=== PATIENT | male | born 1960 | race Caucasian/White ===

== ENCOUNTER 2017-01-22 15:07 | Inpatient (IN) | payer MEDICARE, OTHER ==
--- NOTE | ~2017-01-22 | DS ---
Discharge Summary [address] [address] NAME: ASHLEIGHJEREMY ANTHONY : 64 STATUS : DIS IN PAT#: [id number] AGE: 56 ADM/REG DATE : 01/22/17 MR#: [id number] REPORT SERV DATE: 01/29/17 DICTATED BY: CHAVA DON DATE: 01/28/17 REPORT STATUS : Draft TRANSCRIBED BY: MODL DATE: 01/28/17 ADMISSION DATE: 01/22/2017 DISCHARGE DATE: 01/28/2017 DISCHARGE DIAGNOSES: 1. Acute on chronic hypoxemic and hypercapnic respiratory failure. 2. Right lower lobe and right middle lobe pneumonia, positive sputum culture for Serratia liquefaciens. 3. Right lower lobe bronchiectasis. 4. Left lower lobe atelectasis. 5. Coronary artery disease with coronary calcification by CT imaging. 6. Chronic anemia. 7. Morbid obesity. 8. Sleep apnea. 9. Obesity hypoventilation syndrome. 10.Chronic left hip osteomyelitis on chronic suppressive therapy with cefadroxil. 11.Hypothyroid on replacement. 12.Edema. 13.Down's syndrome. OPERATIONS AND PROCEDURES: None. PRESENT ILLNESS: This is a 56-year-old white male who was triaged in the emergency room on 01/22/2017 at 1313 hours with complaints of shortness of breath and cough. Admission vital signs: Blood pressure 103/72, temp 98.2, pulse 90, respirations 20, O2 sat 98%. After evaluation in the emergency room, his diagnosis was pneumonia. He was referred to the Hospitalist Service. He was seen by Dr. Chava Arana and admitted as described on admission history and physical examination. Additional history included a history of bronchiectasis, followed by Dr. Jersey Kulkarni at [facility]. He has known sleep apnea and is on CPAP. He had been treated in the outpatient setting for an upper respiratory/lower respiratory infection without improvement. ADDITIONAL HISTORY: Per Dr. Arana. PHYSICAL EXAMINATION: Per Dr. Arana. ADMISSION LABORATORY: Per Dr. Arana. HOSPITAL COURSE: He was admitted by Dr. Arana with right lower lobe pneumonia in the setting of the above-mentioned comorbidities. Discharge Summary [address] [address] NAME: JEREMY SOTELO DOB: [birth year] STATUS : DIS IN PAT#: [id number] AGE: 56 ADM/REG DATE : 01/22/17 MR#: [id number] REPORT SERV DATE: 01/29/17 DICTATED BY: CHAVA DON DATE: 01/28/17 REPORT STATUS : Draft TRANSCRIBED BY: MODL DATE: 01/28/17 On admission, cultures were obtained. He was started on antimicrobial therapy with Rocephin and Zithromax. He was given O2, aerosols and corticosteroids. He was also started on Diamox. Dr. Arana obtained consultation with Pulmonary. He was seen by Dr. Yarbrough who concurred with the above-mentioned therapy except he recommended discontinuing Diamox. His hospitalist care was by Dr. Serra on the and the undersigned on the through discharge. His admission antimicrobial therapy was continued until a sputum culture returned growing Serratia as described. He was transitioned to Levaquin. Blood cultures obtained on admission were no growth and not surprisingly, influenza testing and urinary antigen testing for strep and Legionella were negative. There was a slow, but steady improvement in his respiratory symptoms during his hospitalization such that by the time of discharge, his cough and sputum had significantly diminished. His blood gas abnormalities had also markedly improved. On admission, on 01/22/2017 at 1759 hours; pH was 732, pCO2 85, pO2 67 on FiO2 of 0.32. On the day of discharge; pH 739, pCO2 56, pO2 61 on FiO2 of 0.28. Additional evaluation was done to further evaluate his respiratory failure and degree of pneumonia. An echocardiogram showed normal left ventricular systolic function. Study was poor. Venous ultrasound imaging was done because of edema, body size, and presentation and no DVT was seen. A modified barium swallow was done and no oropharyngeal dysphagia was identified. A CT chest without contrast was done but was limited by respiratory motion. There was patchy consolidation in the right lower lobe and lateral aspect of the right middle lobe thought to represent pneumonia. A followup CT in 6 to 12 weeks was recommended. In addition to the above, there was some cylindrical bronchiectasis in the right lower lobe. He was seen by Physical Therapy. half-way facility PT was recommended. The family choice for [facility] where his sister works. A bed is available today. Today, it is felt that he has achieved a level of improvement and stability where he can be safely transferred to rehab. DISCHARGE MEDICATIONS: Vitamin C 500 mg twice daily, Duricef 1000 mg twice daily (chronic med), Lovenox 40 mg subcutaneous daily, ranitidine 300 mg twice daily, Lasix 40 mg daily, guaifenesin LA 1200 mg twice daily, Synthroid 125 mcg daily, Claritin 10 mg daily, dressing changes chronic wound three times weekly, Florastor one capsule twice daily, Levaquin 750 mg Discharge Summary [address] [address] NAME: JEREMY SOTELO : 64 STATUS : DIS IN PAT#: [id number] AGE: 56 ADM/REG DATE : 01/22/17 MR#: [id number] REPORT SERV DATE: 01/29/17 DICTATED BY: CHAVA DON DATE: 01/28/17 REPORT STATUS : Draft TRANSCRIBED BY: DAMIAN DATE: 01/28/17 daily for the next 8 days, Brovana nebs q.12 hours, Pulmicort nebs 1 mg q.12 hours, DuoNeb every 4 hours scheduled and q.2 hours p.r.n., Tylenol 500 mg as needed, [place] 10/325 daily as needed. Continue home CPAP, O2, 2 L/min by nasal cannula given the above mentioned arterial blood gases. He is to have a low-sodium diet. At discharge, he will need followup with Dr. Christian and Dr. Kulkarni. Discharge time greater than 30 minutes. DICTATED BY: Chava Don M.D. DD/DAMIAN Chava Don M.D. / [id number] CC: Delia Galaviz M.D. Suresh Enjeti, M.D. [facility]
--- NOTE | ~2017-01-22 | HP ---
History And Physical [address] [address] NAME: JEREMY SOTELO : 64 STATUS : ADM IN [facility]#: [id number] AGE: 56 ADM/REG DATE : 01/22/17 MR#: [id number] REPORT SERV DATE: 01/22/17 DICTATED BY: CHAVA STONE DATE: 01/22/17 REPORT STATUS : Draft TRANSCRIBED BY: MODL DATE: 01/22/17 DATE OF ADMISSION: 01/22/2017 ATTENDING PHYSICIAN: Dr. Avendaño. REASON FOR ADMISSION: Pneumonia bilateral lower lobes and chronic respiratory failure. HISTORY OF PRESENT ILLNESS: This is a 56-year-old white male patient with Down syndrome, who has had chronic recurrent respiratory infections in the past. He had right lower lobectomy in the past assuming to have been for bronchiectasis. He is followed by Dr. Jersey Kulkarni at [place]. His primary care physician is Dr. Semaj Christian in [place]. He has had increasing coughing and shortness of breath. He is wearing a CPAP machine at night because of obstructive sleep apnea. He is known to have severity of respiratory distress, he develops pneumonia. He was brought in because of coughing and fever and chills. He has poor dentition, he has lost some of his caps on his upper teeth and has got to go to see the dentist. He has a broken tooth on the right upper molar that is visible now. He has chronic osteomyelitis or chronic right hip joint infection. 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 He has been seen in the past by Dr. Mustapha Woody and Dr. Miguel A Marshall from Orthopedic surgery. He has chronic osteomyelitis. Home health nurse continues to see him. He has about an 8 inch drain on the anterior inguinal fold on the left side. PAST MEDICAL HISTORY: During prior hospitalization, he had right sacroiliitis. He had open wound in his left hip. He was transferred to [facility] after our initial treatment and stabilization here. This was about one year ago. Dr. Owens had seen him in the intensive care unit and resuscitated him from septic shock at that time. His home medications have not yet been identified by pharmacy but will be reviewed. He has morbid obesity, had lost 91 pounds on Weight Watchers. He has gained a lot of weight since he has had his hip joint replacement and the Girdlestone procedure in the past. He does have hypothyroidism and recurrent infections along with the sleep apnea. He had a right thoracotomy with right lower lobe lobectomy and multiple procedures on his left hip. MEDICATIONS: Previous medications had included Synthroid 125 mcg p.o. daily; Dulera 2+ puffs twice a day; Spiriva; Zantac; Caltrate; vitamin C; and Zyrtec. SOCIAL HISTORY: He lives with his mother now in a house owned by his sister who is a nurse at [employer]. He does not smoke cigarettes or take any alcohol. He was a bowling [place] prior to him falling and breaking his hip. He does not smoke any cigarettes. He does not take any alcohol or illicit drug use. History And Physical [address] [address] NAME: JEREMY SOTELO : 64 STATUS : ADM IN [facility]#: [id number] AGE: 56 ADM/REG DATE : 01/22/17 MR#: [id number] REPORT SERV DATE: 01/22/17 DICTATED BY: CHAVA STONE DATE: 01/22/17 REPORT STATUS : Draft TRANSCRIBED BY: DAMIAN DATE: 01/22/17 FAMILY HISTORY: His father had COPD and lung cancer and mother had hypertension. REVIEW OF SYSTEMS: Difficult to obtain from the patient as he does have mental disability from his Down syndrome, but he denies any chest pain, does not feel short of breath. He has not had any fever, chills, or night sweats. The swelling in his lower extremities is the same as usual and he is hungry and wants to eat some food. The remainder of the review of systems are negative. PHYSICAL EXAMINATION: GENERAL: Morbidly obese white male with features of Down syndrome, in no acute distress. VITAL SIGNS: Blood pressure 103/72 with a heart rate of 90, respiratory rate 20, and oxygen saturation 98% initially. HEENT: EOMI. Sclerae clear. Conjunctivae injected with some mattering. NECK: No bruit without any JVD. His pharynx is clear. Tongue is dark red and papillated, somewhat dry. TEETH: His teeth show broken molars on the upper right, others are capped. CHEST: Rhonchi throughout both lungs with decreased air exchange at the right base. HEART: Regular S1, S2 without murmur, gallop, or click. ABDOMEN: Grossly obese. Nontender. Bowel sounds positive. EXTREMITIES: Extremities have groin wound dressed on the left side. He does have distal pulses at the dorsalis pedis. Legs have 3+ pitting edema. He has some stasis changes in the lower extremities in the shins. LYMPHATICS: There is no adenopathy palpable. LABORATORY DATA: Chest x-ray, reviewed by me. Comparison with the previous x-ray shows evidence of loss of volume atelectasis at the right base and blurring of both heart borders, right and left. There is a tracheal shift to the right side, suspicious for volume loss in the right lower lobe. White count 7100, hemoglobin 12.2, hematocrit of 42.4, and platelet count is 208. The CMP showed a sodium of 126, potassium 4.1, the carbon dioxide level was 44 with a BUN of 13 with a creatinine of 0.91. His total protein is 88.9 with an albumin of 2.8. Liver tests were normal. Influenza A and B screen were negative. Culture of the right lower lobe sputum is pending though he had 25 white cells and moderate gram-positive cocci in pairs and chains on the Gram stain. ASSESSMENT: 1. Right lower lobe pneumonia with loss of volume with shift of trachea. We will try EzPAP and see if this can expand; if not, probably BiPAP. I am going to go ahead and consult Pulmonary since they have seen him before. He is followed by a serologist regularly with Dr. Kulkarni. 2. Obstructive sleep apnea, will use his nighttime CPAP. 3. Down syndrome. 4. Left hip wound infection with Girdlestone procedure and removal of previous hardware. History And Physical [address] [place]. [address] NAME: JEREMY SOTELO : 64 STATUS : ADM IN [facility]#: [id number] AGE: 56 ADM/REG DATE : 01/22/17 MR#: [id number] REPORT SERV DATE: 01/22/17 DICTATED BY: CHAVA STONE DATE: 01/22/17 REPORT STATUS : Draft TRANSCRIBED BY: MODL DATE: 01/22/17 5. Obesity-hypoventilation syndrome. His PaCO2 is 85 with a pH of 7.32. 6. Poor dentition. 7. Morbid obesity. PLAN: EzPAP. Antibiotics. Start prednisone. Add Diamox because of CO2 retention. Adjust oxygen to 91 to 93% at most. Consider BiPAP if recommended by Pulmonary. Probably full mouth extraction would be of some benefit to him with the previous infections and the poor dentition. DB/MODL Chava Stone M.D. / [id number] CC: MD Semaj Soria M.D. Suresh Enjeti, M.D. Nathan Mull IV, M.D.
--- NOTE | ~2017-01-22 | CN ---
Consultation Report [facility] [address] [place]. [address] NAME: JEREMY SOTELO : 64 STATUS : ADM IN [facility]#: [id number] AGE: 56 ADM/REG DATE : 01/22/17 MR#: [id number] REPORT SERV DATE: 01/23/17 DICTATED BY: CATRINA YARBROUGH DATE: 01/23/17 REPORT STATUS : Draft TRANSCRIBED BY: MODL DATE: 01/23/17 PULMONARY CONSULT NOTE DATE OF CONSULTATION: 01/23/2017 REASON FOR CONSULTATION: Acute on chronic hypercapnic respiratory failure. CHIEF COMPLAINT: Fevers. HISTORY OF PRESENT ILLNESS: Mr. Sotelo is a 56-year-old gentleman with a past medical history of Down syndrome, who had an underlying fever yesterday for which the mother brought him in. She states that usually whenever he gets a fever, he needs to be seen emergently or else he has a worsening clinical picture with infection. The patient has a long history of pneumonia and has had to undergo a right lower lobe lobectomy according to the mother for recurrent scarring in that area. The patient follows up with Dr. Kulkarni at [place]. Otherwise, from a Pulmonary standpoint, the patient is on Dulera and Spiriva at home. The patient and mother state that he is already feeling better. PAST MEDICAL HISTORY: Down syndrome, history of recurrent pneumonia, history of septic shock, right lower lobe lobectomy, bronchiectasis, obesity, obstructive sleep apnea, hypothyroidism, left hip replacement with sacroiliitis. HOME MEDICATIONS: Home medication list reviewed, pulmonary medications include DuoNeb, Dulera, Spiriva. ALLERGIES: PENICILLIN G, ADHESIVE TAPE. SOCIAL HISTORY: The patient currently lives with mother and sister who is a nurse meat manager. No smoking or alcohol use. Secondhand smoke exposure is noted however. FAMILY HISTORY: Father had COPD and lung cancer, mother with hypertension. REVIEW OF SYSTEMS: Unable to obtain good review of systems from the patient, but otherwise clear. PHYSICAL EXAMINATION: VITAL SIGNS: Temperature afebrile, heart rate 80s, oxygen saturation currently 95% on 3 L nasal cannula. Blood pressure currently 109 to 122 systolic. GENERAL: The patient is sitting up, having lunch. No respiratory distress. Does have rhonchorous breath sounds. PULMONARY: Rhonchorous breath sounds are noted. CARDIAC: Regular rate, no murmurs. ABDOMEN: Soft, nontender, nondistended. EXTREMITIES: No lower extremity edema. Peripheral pulses noted. Findings of stasis Consultation Report [address] [place]. [address] NAME: JEREMY SOTELO : 64 STATUS : ADM IN PAT#: [id number] AGE: 56 ADM/REG DATE : 01/22/17 MR#: [id number] REPORT SERV DATE: 01/23/17 DICTATED BY: CATRINA YARBROUGH DATE: 01/23/17 REPORT STATUS : Draft TRANSCRIBED BY: MODL DATE: 01/23/17 dermatitis, right greater than left. LABORATORY EXAMINATION: No leukocytosis, negative procalcitonin, bicarbonate is 38. Arterial blood gas shows a pH of 7.33, pCO2 75, down from a pCO2 of 85. Culture results: Sputum culture shows gram-positive cocci. ASSESSMENT AND PLAN: Mr. Sotelo is a 56-year-old gentleman with a past medical history of underlying recurrent pneumonia in the setting of known chronic hypercapnic respiratory failure. 1. Acute on chronic hypercapnic respiratory failure: The patient seems to have returned back to baseline. He is to continue weight loss as he has been doing. Continue his noninvasive positive pressure ventilation while asleep. Continue his DuoNeb, Spiriva, and Dulera at discharge. Currently, the patient is on prednisone for a flash burst, five days of prednisone therapy. 2. Chronic respiratory acidosis with compensatory metabolic alkalosis. At this moment in time, I am not sure whether Diamox will help this patient as this is currently a compensation mechanism and would recommend discontinuing Diamox. 3. Probable aspiration pneumonia: Unfortunately, this will be a lifelong difficulty with this patient, his procalcitonin is essentially negative and negative white blood cell count. He is currently on Ceftin. Recommend following sputum cultures to help further titrate antibiotic coverage. Thank you very much for this consultation, I have no significant new input here. The patient is to follow up with Dr. Kulkarni, discharge. Please call us with any further questions or concerns. HFQ/MODL Catrina Yarbrough MD / [id number] CC: Delia Starr M.D.
[2017-01-22 15:02] LABS: BASOPHILS 0.6 %; BASOPHILS ABSOLUTE 0.04 10/3/uL (0.0-0.16); EOSINOPHILS 1.7 %; EOSINOPHILS ABSOLUTE 0.12 10/3/uL (0.0-0.53); IMMATURE GRANULOCYTES 0.8 %; IMMATURE GRANULOCYTES ABSOLUTE 0.06 10/3/uL (0.0-0.11); LYMPHOCYTES 13.9 %; LYMPHOCYTES ABSOLUTE 0.99 10/3/uL (0.67-4.30); MEAN CORPUSCULAR HEMOGLOB 24.1 pg (26.0-34.0); MONOCYTES 5.2 %; MONOCYTES ABSOLUTE 0.37 10/3/uL (0.21-1.20); NEUTROPHILS 77.8 %; NEUTROPHILS ABSOLUTE 5.54 10/3/uL (2.02-8.40); PLATELET COUNT 208 10/3/uL (150-400); RBC DISTRIBUTION WIDTH 20.7 % (12.0-16.0)
[2017-01-22 15:03] LABS: ER CBC TAT 0 Hrs 12 Mins; HEMATOCRIT 42.4 % (40.0-51.0); HEMOGLOBIN 12.2 g/dL (13.6-17.8); MANUAL DIFF NO %; MEAN CORPUS HGB CONC 28.8 g/dL (32.0-36.0); MEAN CORPUSCULAR VOLUME 83.8 fL (80-100); RED CELL COUNT 5.06 10/6/uL (4.7-6.1); WHITE BLOOD CELLS 7.1 10/3/uL (4.5-10.5)
[~2017-01-22 15:07] MED LIST: ASMANEX 30110 MCG IN; CALTRA600D PO; CENTRUM TAB1 TAB PO; DULERA 100 MCG/13 GM INH; FORADIL AEROLI12 MCG INH; FORADIL INH; IRON325 MG PO; L40 PO; MULTIVIT/MIN PO; RANITIDINE300 MG PO; SPIRIVA INH; SYN125 PO; VITAMIN D1000 UNI1 PO; VITC500 PO; ZYRTEC ALLGY10 MG PO
[2017-01-22 15:09] LABS: INFLUENZA A SCREEN NEGATIVE (NEGATIVE); INFLUENZA B SCREEN NEGATIVE (NEGATIVE)
[2017-01-22 15:09] LABS: A/G RATIO 0.5 (0.7-1.9); ALKALINE PHOSPHATASE 114 U/L (45-117); CHLORIDE, SERUM 93 MMOL/L (96-112); CREATININE 0.91 MG/DL (0.70-1.30); GFR AFRICAN AMERICAN 110 ML/MIN (>=60); GFR NON AFRICAN AMERICAN 95 ML/MIN (>=60); GLOBULIN 6.1 G/DL (2.5-4.1); GLUCOSE, SERUM 94 MG/DL (60-99); POTASSIUM, SERUM 4.1 MMOL/L (3.5-5.3); SGOT(AST) 15 U/L (5-40); SGPT(ALT) 20 U/L (5-65); SODIUM, SERUM 136 MMOL/L (135-148); TOTAL BILIRUBIN 0.3 MG/DL (0-1.2); TOTAL PROTEIN 8.9 G/DL (6.0-8.5)
[2017-01-22 15:12] LABS: ALBUMIN 2.8 G/DL (3.5-5.0); BUN (BLOOD UREA NITROGEN) 13 MG/DL (6-23); CO2 (CARBON DIOXIDE) 44 MMOL/L (24-34)
[2017-01-22 15:27] LABS: ANISOCYTOSIS 1+ (5-10/OIF) (0-5/OIF); PLATELET ESTIMATE ADQ (ADEQUATE)
[2017-01-22] MEDS ORDERED: RANITIDINE300 MG PO (16:19)
[2017-01-22] MEDS ORDERED: CEFADROXIL1 GM PO (16:19)
[2017-01-22] MEDS ORDERED: VITC500 PO (16:19)
[2017-01-22] MEDS ORDERED: NYSTATPOW TOP (16:20)
[2017-01-22] MEDS ORDERED: ACET500CAP PO (16:20)
[2017-01-22] MEDS ORDERED: DUONEB INH (16:20)
[2017-01-22] MEDS ORDERED: NORCO1 TAB PO (16:20)
[2017-01-22] MEDS ORDERED: KDUR20 PO (16:21)
[2017-01-22] MEDS ORDERED: K500 PO (16:21)
[2017-01-22] MEDS ORDERED: L40 PO (16:21)
[2017-01-22] MEDS ORDERED: PROBIOTIC PO (16:21)
[2017-01-22] MEDS ORDERED: SYN125 PO (16:23)
[2017-01-22] MEDS ORDERED: MUCINEX DM MAX PO (16:23)
[2017-01-22] MEDS ORDERED: DULERA 100 MCG/13 GM PO (16:23)
[2017-01-22] MEDS ORDERED: DEBROX EAR DROPS OT (16:24)
[2017-01-22] MEDS ORDERED: SPIRIVA INH (16:25)
[2017-01-22 17:59] LABS: ALLENS TEST Pos; BE (BASE EXCESS) 12.9 MEQ/L (0 +/- 2.5); CARBOXYHEMOGLOBIN 2.3 % (0-3); HCO3 (ACTUAL BICARBONATE) 42.4 MEQ/L (23-27); HEMOBLOGIN CONTENT 11.9 G/DL (14-18); INSTRUMENT SERIAL # 8087; METHEMOGLOBIN 0.3 % (0-3); OPERATOR ID 14335; PCO2 (CO2 TENSION) 85 MMHG (35-45); PO2 (O2 TENSION) 67 MMHG (79-93); SAMPLE Arterial; pH 7.32 (7.37-7.43)
[2017-01-22 19:33] LABS: TROPONIN I <0.02 NG/ML (<0.05)
[2017-01-22 20:32] LABS: ALLENS TEST Pos; BE (BASE EXCESS) 10.1 MEQ/L (0 +/- 2.5); CARBOXYHEMOGLOBIN 1.3 % (0-3); DEVICE NC; HCO3 (ACTUAL BICARBONATE) 38.6 MEQ/L (23-27); HEMOBLOGIN CONTENT 11.6 G/DL (14-18); INSTRUMENT SERIAL # 35151; METHEMOGLOBIN 0.3 % (0-3); O2 CONTENT 15.4 VOL% (18-24); OPERATOR ID 31061; PCO2 (CO2 TENSION) 75 MMHG (35-45); PO2 (O2 TENSION) 81 MMHG (79-93); SAMPLE Arterial; pH 7.33 (7.37-7.43)
[2017-01-23 04:48] LABS: BUN (BLOOD UREA NITROGEN) 13 MG/DL (6-23); CALCIUM, SERUM 8.2 MG/DL (8.5-10.4); CHLORIDE, SERUM 97 MMOL/L (96-112); CREATININE 0.79 MG/DL (0.70-1.30); GFR AFRICAN AMERICAN 118 ML/MIN (>=60); GFR NON AFRICAN AMERICAN 102 ML/MIN (>=60); GLUCOSE, SERUM 108 MG/DL (60-99); POTASSIUM, SERUM 3.8 MMOL/L (3.5-5.3); SODIUM, SERUM 138 MMOL/L (135-148)
[2017-01-23 04:49] LABS: CO2 (CARBON DIOXIDE) 38 MMOL/L (24-34)
[2017-01-23 11:44] LABS: PROCALCITONIN 0.07 ng/mL (<0.5)
[2017-01-24 05:21] LABS: HEMATOCRIT 38.4 % (40.0-51.0); HEMOGLOBIN 10.9 g/dL (13.6-17.8); MEAN CORPUS HGB CONC 28.4 g/dL (32.0-36.0); MEAN CORPUSCULAR VOLUME 84.4 fL (80-100); PLATELET COUNT 177 10/3/uL (150-400); RBC DISTRIBUTION WIDTH 20.5 % (12.0-16.0); RED CELL COUNT 4.55 10/6/uL (4.7-6.1); WHITE BLOOD CELLS 6.6 10/3/uL (4.5-10.5)
[2017-01-24 05:22] LABS: MANUAL DIFF YES %
[2017-01-24 05:40] LABS: BUN (BLOOD UREA NITROGEN) 13 MG/DL (6-23); CALCIUM, SERUM 8.5 MG/DL (8.5-10.4); CHLORIDE, SERUM 102 MMOL/L (96-112); CREATININE 0.75 MG/DL (0.70-1.30); GFR AFRICAN AMERICAN 121 ML/MIN (>=60); GFR NON AFRICAN AMERICAN 104 ML/MIN (>=60); SODIUM, SERUM 136 MMOL/L (135-148)
[2017-01-24 05:41] LABS: CO2 (CARBON DIOXIDE) 28 MMOL/L (24-34); GLUCOSE, SERUM 84 MG/DL (60-99); POTASSIUM, SERUM 4.8 MMOL/L (3.5-5.3)
[2017-01-24 06:49] LABS: ANISOCYTOSIS 1+ (5-10/OIF) (0-5/OIF); BAND NEUTROPHILS 3 %; HYPOCHROMIA 1+ (3-10/OIF) (0-2/OIF); IMMATURE GRANS ABSOLUTE (CALC) 0.13 10/3/uL (0.0-0.11); LYMPHOCYTES 18 %; LYMPHOCYTES ABSOLUTE (CALC) 1.19 10/3/uL (0.67-4.30); METAMYELOCYTES 2 %; MONOCYTES 3 %; NEUTROPHILS ABSOLUTE (CALC) 5.08 10/3/uL (2.02-8.40); PLATELET ESTIMATE ADQ (ADEQUATE); SEGMENTED NEUTROPHIL (0) 74 %; TOTAL NUCLEATED CELLS 100
[2017-01-24 12:13] LABS: C-REACTIVE PROTEIN 92.1 MG/L (<8.0)
[2017-01-26 06:59] LABS: BASOPHILS 0.5 %; BASOPHILS ABSOLUTE 0.04 10/3/uL (0.0-0.16); EOSINOPHILS 0.1 %; EOSINOPHILS ABSOLUTE 0.01 10/3/uL (0.0-0.53); HEMATOCRIT 36.9 % (40.0-51.0); HEMOGLOBIN 10.9 g/dL (13.6-17.8); IMMATURE GRANULOCYTES 1.8 %; IMMATURE GRANULOCYTES ABSOLUTE 0.14 10/3/uL (0.0-0.11); LYMPHOCYTES 13.3 %; LYMPHOCYTES ABSOLUTE 1.01 10/3/uL (0.67-4.30); MEAN CORPUS HGB CONC 29.5 g/dL (32.0-36.0); MEAN CORPUSCULAR HEMOGLOB 24.1 pg (26.0-34.0); MONOCYTES 6.7 %; MONOCYTES ABSOLUTE 0.51 10/3/uL (0.21-1.20); NEUTROPHILS 77.6 %; NEUTROPHILS ABSOLUTE 5.91 10/3/uL (2.02-8.40); PLATELET COUNT 199 10/3/uL (150-400); RBC DISTRIBUTION WIDTH 20.7 % (12.0-16.0); RED CELL COUNT 4.52 10/6/uL (4.7-6.1); WHITE BLOOD CELLS 7.6 10/3/uL (4.5-10.5)
[2017-01-26 07:03] LABS: MANUAL DIFF NO %; MEAN CORPUSCULAR VOLUME 81.6 fL (80-100)
[2017-01-26 07:13] LABS: C-REACTIVE PROTEIN 27.7 MG/L (<8.0); CALCIUM, SERUM 8.7 MG/DL (8.5-10.4); CHLORIDE, SERUM 98 MMOL/L (96-112); CO2 (CARBON DIOXIDE) 32 MMOL/L (24-34); CREATININE 0.78 MG/DL (0.70-1.30); GFR AFRICAN AMERICAN 119 ML/MIN (>=60); GFR NON AFRICAN AMERICAN 102 ML/MIN (>=60); POTASSIUM, SERUM 4.2 MMOL/L (3.5-5.3); SODIUM, SERUM 135 MMOL/L (135-148)
[2017-01-26 07:14] LABS: BUN (BLOOD UREA NITROGEN) 19 MG/DL (6-23); GLUCOSE, SERUM 104 MG/DL (60-99)
[2017-01-28 05:58] LABS: ALLENS TEST Pos; CARBOXYHEMOGLOBIN 0.4 % (0-3); HCO3 (ACTUAL BICARBONATE) 33.3 MEQ/L (23-27); INSTRUMENT SERIAL # 35151; METHEMOGLOBIN 0.7 % (0-3); O2 CONTENT 13.9 VOL% (18-24); OPERATOR ID 35390; PCO2 (CO2 TENSION) 56 MMHG (35-45); PO2 (O2 TENSION) 61 MMHG (79-93); SAMPLE Arterial; pH 7.39 (7.37-7.43)
[2017-01-28 06:09] LABS: BASOPHILS ABSOLUTE 0.06 10/3/uL (0.0-0.16); EOSINOPHILS 1.3 %; EOSINOPHILS ABSOLUTE 0.08 10/3/uL (0.0-0.53); HEMATOCRIT 35.1 % (40.0-51.0); HEMOGLOBIN 10.4 g/dL (13.6-17.8); IMMATURE GRANULOCYTES ABSOLUTE 0.18 10/3/uL (0.0-0.11); LYMPHOCYTES 21.7 %; LYMPHOCYTES ABSOLUTE 1.32 10/3/uL (0.67-4.30); MEAN CORPUS HGB CONC 29.6 g/dL (32.0-36.0); MEAN CORPUSCULAR HEMOGLOB 23.8 pg (26.0-34.0); MEAN CORPUSCULAR VOLUME 80.3 fL (80-100); MONOCYTES 7.2 %; MONOCYTES ABSOLUTE 0.44 10/3/uL (0.21-1.20); NEUTROPHILS 65.8 %; PLATELET COUNT 170 10/3/uL (150-400); RBC DISTRIBUTION WIDTH 20.6 % (12.0-16.0); RED CELL COUNT 4.37 10/6/uL (4.7-6.1); WHITE BLOOD CELLS 6.1 10/3/uL (4.5-10.5)
[2017-01-28 06:10] LABS: MANUAL DIFF NO %
[2017-01-28 06:17] LABS: BUN (BLOOD UREA NITROGEN) 24 MG/DL (6-23); C-REACTIVE PROTEIN 12.3 MG/L (<8.0); CALCIUM, SERUM 8.3 MG/DL (8.5-10.4); CHLORIDE, SERUM 99 MMOL/L (96-112); CO2 (CARBON DIOXIDE) 35 MMOL/L (24-34); CREATININE 0.84 MG/DL (0.70-1.30); GFR AFRICAN AMERICAN 115 ML/MIN (>=60); GFR NON AFRICAN AMERICAN 99 ML/MIN (>=60); GLUCOSE, SERUM 88 MG/DL (60-99); POTASSIUM, SERUM 4.3 MMOL/L (3.5-5.3); SODIUM, SERUM 138 MMOL/L (135-148)
[2017-01-28 06:36] LABS: ANISOCYTOSIS 1+ (5-10/OIF) (0-5/OIF); PLATELET ESTIMATE ADQ (ADEQUATE)
== END 2017-01-28 17:26 | DRG 177 ==
LOC: ER 15:07 → 6NO 17:25
PROVIDERS: Hospitalist; Internal Medicine; Nurse Practitioner Family
DX: J15.6 Pneumonia due to other Gram-negative bacteria (principal); J96.22 Acute and chronic respiratory failure with hypercapnia; E87.4 Mixed disorder of acid-base balance; E66.2 Morbid (severe) obesity with alveolar hypoventilation; Z68.43 Body mass index [BMI] 50.0-59.9, adult; M86.8X8 Other osteomyelitis, other site; J98.11 Atelectasis; J69.0 Pneumonitis due to inhalation of food and vomit; Q90.9 Down syndrome, unspecified; E03.9 Hypothyroidism, unspecified; J47.9 Bronchiectasis, uncomplicated; I25.10 Atherosclerotic heart disease of native coronary artery without angina pectoris; G47.33 Obstructive sleep apnea (adult) (pediatric); K08.89 Other specified disorders of teeth and supporting structures; Z90.2 Acquired absence of lung [part of]; Z87.01 Personal history of pneumonia (recurrent); Z96.642 Presence of left artificial hip joint; Z88.0 Allergy status to penicillin; Z77.22 Contact with and (suspected) exposure to environmental tobacco smoke (acute) (chronic); Z82.49 Family history of ischemic heart disease and other diseases of the circulatory system
CPT/HCPCS: 36600; 71010; 71250; 74230; 80048; 80053; 82805; 83735; 83880; 84145; 84443; 84484; 85025; 86140; 87040; 87070; 87077; 87186; 87205; 87449; 87804; 92611-GN; 93005; 93970; 94640; 96374; 97161-GP; 99285; A9270-GY; C8929; G8978-CK-GP; G8979-CK-GP; G8980-CK-GP; G8996-CI-GN; G8997-CI-GN; G8998-CI-GN; J0456; J1940; J1956; Q9957